=== PATIENT | male | born 1935 | race Caucasian/White ===

== ENCOUNTER 2017-09-17 11:59 | Day surgery (SDC) | payer OTHER, MEDICARE ==
[~2017-09-17] VITALS: Ht 175.3 cm; Wt 76.6 kg
[~2017-09-17 11:59] MED LIST: COREG25 M1 PO; FOLIC ACID-VIT1 EAC1 PO; SYNTHROID137 MCG PO; VITAMIN B-125000 MCG SL; VITAMIN D35000 UNIT PO
[2017-09-17 12:46] LABS: HEMATOCRIT 42.1 % (38.0-50.0); HEMOGLOBIN 13.3 G/DL (12.5-16.6); MCH 29.1 PG (29.0-34.0); MCHC 31.6 G/DL (30.0-36.0); MCV 92.1 FL (86-99); PLATELET COUNT 221 K/uL (156-360); RBC DIS.WIDTH-CV 14.9 % (11.8-14.6); RBC DIS.WIDTH-SD 50.8 % (39-53); RED BLOOD COUNT 4.57 M/uL (4.00-5.50)
[2017-09-17 12:50] VITALS: BP 133/83
[2017-09-17 13:07] LABS: CHLORIDE 105 MEQ/L (99-109); POTASSIUM 4.8 MEQ/L (3.7-5.4); SODIUM 142 MEQ/L (136-147)
[2017-09-17 13:13] LABS: CREATININE 5.4 MG/DL (0.6-1.3); GFR ESTIMATE (CALCULATED) 11 mL/min/ (58.99-99999); GLUCOSE 84 mg/dL (70-99); UREA NITROGEN (BUN) 53 mg/dL (9-23)
[2017-09-17 17:50] VITALS: BP 151/77
[2017-09-17 19:04] VITALS: BP 150/77
== END 2017-09-17 19:05 | disposition home or self-care (01) ==
LOC: SDC 11:59
PROVIDERS: Surgery
DX: I12.0 Hypertensive chronic kidney disease with stage 5 chronic kidney disease or end stage renal disease (principal); N18.6 End stage renal disease; Z99.2 Dependence on renal dialysis; Z85.46 Personal history of malignant neoplasm of prostate; Z85.528 Personal history of other malignant neoplasm of kidney; Z85.830 Personal history of malignant neoplasm of bone; Z85.850 Personal history of malignant neoplasm of thyroid; Z90.5 Acquired absence of kidney
CPT/HCPCS: 80048; 85027; 87641; 93005; J0690; J1644; J2720; J3010